=== PATIENT | female | born 1980 | race African-American/Black ===

== ENCOUNTER 2023-04-18 08:29 | Emergency (ER) | payer OTHER, SELFPAY ==
[2023-04-18 08:58] VITALS: BP 111/82; PULSE 67; RESP 18; TEMP 36.4; O2SAT 100; BMI 25.7
--- NOTE | 2023-04-18 09:38 | ED_ITS ---
HPI - Female Genitourinary General Chief complaint: Urogenital-Female Stated complaint: uti and blood in urine Time Seen by Provider: 04/18/23 09:14 History of Present Illness HPI Narrative: Patient complains of 2 days of dysuria, she complains of frequency burning and today there was some blood in the urine, she denies fever vomiting abdominal pain or back pain, denies any discharge no pelvic pain Related Data Previous Rx's Medication Instructions Recorded nitrofurantoin 100 mg PO Q12H 5 days #10 caps 04/18/23 monohydrate/macrocrystals 100 mg capsule (Macrobid) Allergies Allergy/AdvReac Type Severity Reaction Status Date / Time No Known Allergies Allergy Verified 04/18/23 08:58 COUNT INCLUDES THE [facility] Past Medical History Source: nursing notes reviewed Social History Social History Advance Directives: No Advance Directives Information Provided: Yes Physical Exam Vital Signs: Vital Signs: Last Vital Signs Temp 97.6 F 04/18/23 08:58 Pulse 67 04/18/23 08:58 Resp 18 04/18/23 08:58 BP 111/82 04/18/23 08:58 Pulse Ox 100 04/18/23 08:58 O2 Del Method Room Air 04/18/23 08:58 BMI result Body Mass Index 25.7 General appearance comfortable no distress The eyes anicteric no pallor Pharynx mucous membranes moist Neck is supple Abdomen soft nontender The back no CVA tenderness no pelvic tenderness Extremities range of motion x4 Course Course Course Narrative: Patient with thigh typical UTI symptoms similar to prior infections with no fever no vomiting Urinalysis confirmed UTI, was negative and patient is started on Macrobid Medications Administered Discontinued Medications Generic Name Dose Route Start Last Admin Trade Name Freq PRN Reason Stop Dose Admin Nitrofurantoin Macrocrystals 100 mg 04/18/23 10:19 04/18/23 10:28 Nitrofurantoin Monohyd/M-Cryst 100 Mg Capsule PO 04/18/23 10:20 100 mg ONCE ONE Administration Medical Decision Making Lab Data Labs: Lab Results 04/18/23 Range/Units 09:34 Urine Color Dark Yellow Urine Appearance Clear Urine pH 5.5 (5.0-9.0) Ur Specific [place] 1.010 (1.005-1.025) Urine Protein Negative (Neg-Trace) mg/dL Urine Glucose (UA) Negative (Negative) mg/dL Urine Ketones Negative (Negative) mg/dL Urine Blood Moderate (2+) H (Negative) Urine Nitrite Positive H (Negative) Ur Leukocyte Esterase Moderate (2+) H (Negative) Urine RBC 0-2 (0-2) /HPF Urine WBC 21-50 (0-5) /HPF Ur Squamous Epith Cells 3-5 (0-2) /HPF Urine Bacteria 4+ (None Seen) Hyaline Casts 0-2 (0-2) /LPF Urine Test NEGATIVE (NEGATIVE) Discharge Plan Discharge Clinical Impression: Urinary tract infection Patient Disposition: Home, Self-Care Additional Instructions: Urine test showed you have a urinary tract infection which is consistent with the symptoms you are having We are prescribing Macrobid antibiotic Drink plenty of water Return any time for fever vomiting increased pain any worse condition or any concerns Prescriptions: New nitrofurantoin monohyd/m-cryst [Macrobid] 100 mg capsule 100 mg PO Q12H 5 Days Qty: 10 0RF Rx Instructions: must administer with a meal/food Stand Alone Forms: Work/School Release Interventions: ED Discharge Assessment Last Done: 04/18/23 10:32 Discharge Date/Time: 04/18/23 10:33
[2023-04-18 09:41] LABS: Appearance Urine Clear; Color Urine Dark Yellow; Glucose Urine UA Negative (Negative); Leukocyte Esterase Urine Moderate (2+) (Negative); Nitrite Urine Positive (Negative); PH 5.5 (5.0-9.0); UMIC TRIGGER UACC YES; Urine Blood Moderate (2+) (Negative); Urine Ketones Negative (Negative); Urine Protein Negative (Neg-Trace)
[2023-04-18 09:44] LABS: UPreg QC Valid YES; Urine Pregnancy NEGATIVE (NEGATIVE)
[2023-04-18 09:53] LABS: Bacteria Urine 4+ (None Seen); Hyaline Casts Urine 0-2 /LPF (0-2); RBC Urine 0-2 /HPF (0-2); UACC Culture Trigger YES; WBC Urine 21-50 /HPF (0-5)
[2023-04-18] MEDS: Nitrofurantoin Monohyd/M-Cryst 100 MG CAPSULE PO (10:28)
== END 2023-04-18 10:33 | disposition home or self-care (01) ==
PROVIDERS: Emergency Provider Emergency Medicine Emergency Medical Services
DX: N39.0 Urinary tract infection, site not specified (principal)
CPT/HCPCS: 81001; 81025; 87086; 87088; 87186; 99282; 99283

== ENCOUNTER 2023-10-23 09:50 | Outpatient (AMB) | payer OTHER, SELFPAY ==
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
[2023-10-23 10:04] VITALS: BP 118/64; PULSE 61; O2SAT 99; BMI 27.1
== END 2023-10-23 11:05 | disposition home or self-care (01) ==
PROVIDERS: PCP Family Medicine; Visit Provider Family Medicine
DX: N60.02 Solitary cyst of left breast (principal); F41.8 Other specified anxiety disorders; Z87.898 Personal history of other specified conditions; Z12.31 Encounter for screening mammogram for malignant neoplasm of breast
CPT/HCPCS: 99203

== ENCOUNTER 2023-10-27 08:23 | Outpatient (REF) | payer OTHER, SELFPAY ==
[2023-10-27 10:21] LABS: Appearance Urine Clear; Color Urine Yellow; Glucose Urine UA Negative (Negative); Leukocyte Esterase Urine Negative (Negative); Nitrite Urine Negative (Negative); PH 6.5 (5.0-9.0); Urine Blood Negative (Negative); Urine Ketones Negative (Negative); Urine Protein Negative (Neg-Trace)
[2023-10-27 10:33] LABS: MANUAL DIFF FLAG NO
[2023-10-27 10:45] LABS: Basophils Percent Auto 0.5 % (0-2); Eosinophils Absolute Auto 0.1 X10*3/uL (0.0-0.4); Eosinophils Percent Auto 1.8 % (0-4); Hematocrit 41.8 % (37.0-47.0); Hemoglobin 13.2 g/dl (12.0-16.0); Imm Gran Abs Auto 0.05 X10*3/uL (0.00-0.03); Imm Gran Pct Auto 0.8 % (0.0-0.4); Lymphocytes Absolute Auto 2.3 X10*3/uL (1.2-4.9); Lymphocytes Percent Auto 37.8 % (20-40); Mean Corpuscular HGB Conc 31.6 g/dl (31.0-35.0); Mean Corpuscular Hemoglobin 27.1 pg (27.0-33.0); Mean Corpuscular Volume 85.8 fL (80.0-98.0); Mean Platelet Volume 10.5 fL (9.4-12.3); Monocytes Absolute Auto 0.6 X10*3/uL (0.1-1.2); Monocytes Percent Auto 9.1 % (2-11); Neutrophils Absolute Auto 3.1 x10*3/uL (2.0-8.3); Platelet Count 308 X10*3/uL (160-400); Red Blood Count 4.87 X10*6/uL (4.20-5.50); White Blood Count 6.2 X10*3/uL (4.8-10.8)
[2023-10-27 10:50] LABS: Creatinine Urine 162.55 mg/dL; Microalbumin Urine < 5.0 mg/L
[2023-10-27 11:04] LABS: Alanine Aminotransferase 11 U/L (0-31); Alkaline Phosphatase 73 U/L (39-117); Anion Gap 10 (12-20); Aspartate Amino Transferase 23 U/L (5-31); Bilirubin Total 0.4 mg/dL (0.0-1.0); Blood Urea Nitrogen 8 mg/dL (9-16); Calcium 9.4 mg/dL (8.4-10.2); Carbon Dioxide 27 mmol/L (22-29); Chloride 107 mmol/L (96-108); Cholesterol 187 mg/dL (<200); Estimated Glomerular Filt Rate > 60; Glucose Fasting 92 mg/dL (60-99); HDL Cholesterol 44 mg/dL (>40); LDL Cholesterol Calculated 118 mg/dL (<100); Sodium 140 mmol/L (135-145); Total Protein 7.1 g/dL (6.5-8.0); Triglycerides 128 mg/dL (<150)
[2023-10-27 11:11] LABS: TSH reflex Free T4 4.79 uIU/mL (0.32-4.0)
[2023-10-27 12:13] LABS: Free T4 (Free Thyroxine) 0.83 ng/dL (0.71-1.85)
[2023-10-28 20:58] LABS: Follicle Stimulating Hormone 3.7 mIU/mL; Lutenizing Hormone 3.5 mIU/mL
[2023-11-01 18:18] LABS: Estrogen 328 pg/mL
[2023-11-03 20:04] LABS: Progesterone 11.3 ng/mL
== END 2023-10-27 08:24 | disposition home or self-care (01) ==
LOC: HO.WFDLDS 08:23
PROVIDERS: Visit Provider Family Medicine
DX: Z00.00 Encounter for general adult medical examination without abnormal findings (principal); I10 Essential (primary) hypertension; Z90.711 Acquired absence of uterus with remaining cervical stump
CPT/HCPCS: 36415; 80053; 80061; 81003; 82570; 82672; 83001; 83002; 84144; 84439; 84443; 85025

== ENCOUNTER 2024-01-30 08:36 | Outpatient (AMB) | payer OTHER, SELFPAY ==
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
[2024-01-30 08:54] VITALS: BP 90/50; PULSE 75; RESP 16; TEMP 36.8; O2SAT 95; BMI 26.6
[2024-01-30 09:01] VITALS: BP 96/57
== END 2024-01-30 09:20 | disposition home or self-care (01) ==
PROVIDERS: PCP Family Medicine; Visit Provider Family Medicine
DX: F41.8 Other specified anxiety disorders (principal); R51.9 Headache, unspecified; R79.89 Other specified abnormal findings of blood chemistry; E78.00 Pure hypercholesterolemia, unspecified

== ENCOUNTER 2024-03-09 11:46 | Outpatient (AMB) | payer OTHER, SELFPAY ==
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
[2024-03-09 12:12] VITALS: BP 110/64; PULSE 76; RESP 14; O2SAT 95; BMI 26.5
== END 2024-03-09 12:40 | disposition home or self-care (01) ==
PROVIDERS: PCP Family Medicine; Visit Provider Family Medicine
DX: F41.8 Other specified anxiety disorders (principal); E78.00 Pure hypercholesterolemia, unspecified; R79.89 Other specified abnormal findings of blood chemistry; L65.9 Nonscarring hair loss, unspecified

== ENCOUNTER → 2024-03-09 11:46 | Outpatient (BNVA) | payer OTHER, SELFPAY | PROVIDERS: PCP Family Medicine; Visit Provider Family Medicine | DX: F41.8 Other specified anxiety disorders (principal); E78.00 Pure hypercholesterolemia, unspecified; R79.89 Other specified abnormal findings of blood chemistry; L65.9 Nonscarring hair loss, unspecified | CPT/HCPCS: 96127; 99212 ==

== ENCOUNTER 2024-03-12 08:17 | Outpatient (REF) | payer OTHER, SELFPAY ==
[2024-03-12 11:50] LABS: Alanine Aminotransferase 13 U/L (0-31); Albumin Level 3.9 g/dL (3.5-5.0); Alkaline Phosphatase 71 U/L (39-117); Anion Gap 10 (12-20); Aspartate Amino Transferase 24 U/L (5-31); Bilirubin Total 0.5 mg/dL (0.0-1.0); Blood Urea Nitrogen 9 mg/dL (9-16); Calcium 9.5 mg/dL (8.4-10.2); Carbon Dioxide 28 mmol/L (22-29); Chloride 103 mmol/L (96-108); Cholesterol 174 mg/dL (<200); Estimated Glomerular Filt Rate > 60; Free T4 (Free Thyroxine) 0.87 ng/dL (0.71-1.85); Glucose Fasting 91 mg/dL (60-99); HDL Cholesterol 54 mg/dL (>40); LDL Cholesterol Calculated 106 mg/dL (<100); Potassium 4.3 mmol/L (3.3-5.1); Sodium 137 mmol/L (135-145); Thyroid Stimulating Hormone 2.65 uIU/mL (0.32-4.0); Total Protein 6.9 g/dL (6.5-8.0); Triglycerides 73 mg/dL (<150)
[2024-03-13 17:23] LABS: Triiodothyronine T3 Total 104 ng/dL (76-181)
== END 2024-03-12 08:18 | disposition home or self-care (01) ==
LOC: HO.WFDLDS 08:17
PROVIDERS: Visit Provider Family Medicine
DX: Z00.00 Encounter for general adult medical examination without abnormal findings (principal); E78.00 Pure hypercholesterolemia, unspecified; R51.9 Headache, unspecified; M54.2 Cervicalgia; E03.9 Hypothyroidism, unspecified; R79.89 Other specified abnormal findings of blood chemistry
CPT/HCPCS: 36415; 80053; 80061; 84439; 84443; 84480

== ENCOUNTER 2024-03-24 09:45 | Outpatient (AMB) | payer OTHER, SELFPAY ==
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
[2024-03-24 10:00] VITALS: BP 100/60; PULSE 72; RESP 16; O2SAT 98; BMI 26.5
== END 2024-03-24 10:40 | disposition home or self-care (01) ==
PROVIDERS: PCP Family Medicine; Visit Provider Family Medicine
DX: F41.8 Other specified anxiety disorders (principal); L65.9 Nonscarring hair loss, unspecified; R41.840 Attention and concentration deficit

== ENCOUNTER → 2024-03-24 09:45 | Outpatient (BNVA) | payer OTHER, SELFPAY | PROVIDERS: PCP Family Medicine; Visit Provider Family Medicine | DX: F41.8 Other specified anxiety disorders (principal); L65.9 Nonscarring hair loss, unspecified; R41.840 Attention and concentration deficit | CPT/HCPCS: 96127; 99212 ==

== ENCOUNTER 2024-06-25 09:29 | Outpatient (AMB) | payer OTHER, SELFPAY ==
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
[2024-06-25 09:42] VITALS: BP 110/58; PULSE 65; RESP 14; TEMP 36.8; O2SAT 97; BMI 26.9
--- OUTSIDE RECORDS SUMMARY | 2024-06-25 10:12 | XMS_ITS | Encounter Summary ---
Author Organization [facility] Address [address] [place] [address] Care Team Providers Care Geothermal Field Technician Name Role Phone Pcp, No Primary Care Provider Unavailabl e Reason for Visit * Reason Comments Referral Encounter Details Date Type Department Care Team (Late st Contact Info) Description 11/21/2021 Telephone [facility] [place] [address] [place] [address] Blanca Kahn APRN [address] [place] [address] Referral Social History Tobacco Use Types Packs/Day Years Used Date Smoking Tobacco: Never Assessed Sex and Gender Information Value Date Recorded Sex Assigned at Not on file Gender Identity Not on file Sexual Orientation Not on file documented as of this encounter Miscellaneous Notes * Telephone Encounter - Kym Francois - 11/21/2021 10:27 AM EDT Spoke with patient regarding referral received from [facility] APRN and patient states is moving out of state and will schedule appointment then. Referring physician office notified; Spoke with Zaria in [facility] office to notify patient declined an appointment documented in this encounter Plan of Treatment Not on file documented as of this encounter Visit Diagnoses Not on filedocumented in this encounter Care Teams Geothermal Field Technician Relationship Specialty Start Date End Date Pcp, No [address] [place] [address] PCP - General 11/21/21 documented as of this encounter
--- OUTSIDE RECORDS SUMMARY | 2024-06-25 10:12 | XMS_ITS | Clinical Summary ---
Author Organization [facility] Address [address] [place] [address] Care Team Providers Care Event Decorator Name Role Phone Unavailable Primary Care Provider Unavailabl e Family History Medical History Relation Name Comments Breast cancer Neg Hx Social History Tobacco Use Types Packs/Day Years Used Date Smoking Tobacco: Never Assessed Sex and Gender Information Value Date Recorded Sex Assigned at Not on file Gender Identity Not on file Sexual Orientation Not on file Job Start Date Occupation Industry Not on file Not on file Not on file Plan of Treatment Health Maintenance Due Date Last Done Comments Hepatitis B Vaccines (1 of 3 - 3-dose series) 1980 Hepatitis C Screening 1980 COVID-19 Vaccine (#1) 03/13/1981 Depression Screening 1992 Preventative Health Evaluation 1998 DTap / Tdap / Td (1 - Tdap) 09/11/1999 Cervical Cancer Screening (P ap Smear) 2001 Influenza Vaccine (#1) 2023 Pneumococcal Vaccine Aged Out No long er eligible based on patient's age to complete this topic RSV Ped < 20 months Aged Out No longe r eligible based on patient's age to complete this topic
--- OUTSIDE RECORDS SUMMARY | 2024-06-25 10:12 | XMS_ITS | Clinical Summary ---
Author Organization [facility] Address [address] [place] [address] Care Team Providers Care Deboning Team Leader Name Role Phone Pcp, No Primary Care Provider Unavailabl e Social History Tobacco Use Types Packs/Day Years Used Date Smoking Tobacco: Never Assessed Sex and Gender Information Value Date Recorded Sex Assigned at Not on file Gender Identity Not on file Sexual Orientation Not on file Plan of Treatment Health Maintenance Due Date Last Done Comments Hepatitis C Virus Screening 1980 HIV Screening 1993 DTaP/Tdap/Td Vaccines (1 - Tdap) 09/11/1999 Hepatitis B Vaccines (1 of 3 - 19+ 3-dose series) 09/11/1999 Pap Smear (Ages 21-65) 2001 Mammogram 2020 Influenza Vaccine 11/27/2023 COVID-19 Vaccine ( - 2023-2 5 season) 2023 HPV Vaccines Aged Out No longer eligi ble based on patient's age to complete this topic Pneumococcal Vaccine: Pediat thaddeus (0-5 Years) and At-Risk Patients (6 to 49 Years) Aged Out No longer eligible b ased on patient's age to complete this topic Care Teams Deboning Team Leader Relationship Specialty Start Date End Date Pcp, No [address] [place] [address] PCP - General 11/21/21
== END 2024-06-25 10:21 | disposition home or self-care (01) ==
PROVIDERS: PCP Family Medicine; Visit Provider Family Medicine
DX: F41.8 Other specified anxiety disorders (principal); R41.840 Attention and concentration deficit; R68.82 Decreased libido

== ENCOUNTER → 2024-06-25 09:29 | Outpatient (BNVA) | payer OTHER, SELFPAY | PROVIDERS: PCP Family Medicine; Visit Provider Family Medicine | DX: F41.8 Other specified anxiety disorders (principal); R41.840 Attention and concentration deficit; R68.82 Decreased libido | CPT/HCPCS: 99212 ==

== ENCOUNTER 2024-10-26 11:20 | Outpatient (AMB) | payer OTHER, SELFPAY ==
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
[2024-10-26 12:06] VITALS: BP 94/66; PULSE 56; RESP 14; TEMP 36.7; O2SAT 99; BMI 26.9
--- OUTSIDE RECORDS SUMMARY | 2024-10-26 12:36 | XMS_ITS | Clinical Summary ---
Author Organization [facility] Address [address] [place] [address] Care Team Providers Care Recreational Therapist Name Role Phone Pcp, No Primary Care Provider Unavailabl e Social History Tobacco Use Types Packs/Day Years Used Date Smoking Tobacco: Never Assessed Comments Unknown Sex and Gender Information Value Date Recorded Sex Assigned at Not on file Legal Sex Female 11:42 AM EDT Gender Identity Not on file Sexual Orientation Not on file Plan of Treatment Health Maintenance Due Date Last Done Comments Hepatitis C Virus Screening 1980 HIV Screening 1993 DTaP/Tdap/Td Vaccines (1 - Tdap) 09/11/1999 Hepatitis B Vaccines (1 of 3 - 19+ 3-dose series) 09/11/1999 Pap Smear (Ages 21-65) 2001 Mammogram 2020 COVID-19 Vaccine ( - 2023-2 5 season) 2023 Influenza Vaccine 11/26/2024 HPV Vaccines Aged Out No longer eligi ble based on patient's age to complete this topic Pneumococcal Vaccine: Pediat thaddeus (0-5 Years) and At-Risk Patients (6 to 49 Years) Aged Out No longer eligible b ased on patient's age to complete this topic [place] [address] [place] [address] COMPREHENSIVE Care Teams Recreational Therapist Relationship Specialty Start Date End Date Pcp, No [address] [place] [address] PCP - General 11/21/21
--- OUTSIDE RECORDS SUMMARY | 2024-10-26 12:36 | XMS_ITS | Clinical Summary ---
Author Organization [facility] Address [address] [place] [address] Care Team Providers Care Baker Paint Name Role Phone Unavailable Primary Care Provider [...] Screening (P ap Smear) 2001 Influenza Vaccine (Season Ended) 2024 Pneumococcal Vaccine Aged Out No long er eligible based on patient's age to complete this topic RSV Ped < 20 months Aged Out No longe r eligible based on patient's age to complete this topic
== END 2024-10-26 15:19 | disposition home or self-care (01) ==
LOC: HO.HMCFM 11:21
PROVIDERS: PCP Family Medicine; Visit Provider Family Medicine
DX: R41.840 Attention and concentration deficit (principal); F41.8 Other specified anxiety disorders; R61 Generalized hyperhidrosis

== ENCOUNTER → 2024-10-26 11:20 | Outpatient (BNVA) | payer OTHER, SELFPAY | PROVIDERS: PCP Family Medicine; Visit Provider Family Medicine | DX: R41.840 Attention and concentration deficit (principal); F41.8 Other specified anxiety disorders; R61 Generalized hyperhidrosis | CPT/HCPCS: 96127; 99212 ==

== ENCOUNTER 2025-01-28 10:30 | Outpatient (AMB) | payer OTHER, SELFPAY ==
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
[2025-01-28 10:46] VITALS: BP 110/64; PULSE 64; RESP 15; TEMP 36.9; O2SAT 100; BMI 26.1
--- OUTSIDE RECORDS SUMMARY | 2025-01-28 11:25 | XMS_ITS | Clinical Summary ---
Author Organization [facility] Address [address] [place] [address] Care Team Providers Care Advertising Dispatch Clerk Name Role Phone Pcp, No Primary Care [...] (Ages 21-65) 2001 Mammogram 2020 Influenza Vaccine 11/26/2024 COVID-19 Vaccine ( - 2023-2 5 season) 2024 HPV Vaccines (No Doses Required) Completed Pneumococcal Vaccine: Pediat thaddeus (0-5 Years) and At-Risk Patients (6 to 49 Years) Aged Out No longer eligible b ased on patient's age to complete this topic Insurance [facility] Care Teams Advertising Dispatch Clerk Relationship Specialty Start Date End Date Pcp, No [address] [place] [address] PCP - General 11/21/21
--- OUTSIDE RECORDS SUMMARY | 2025-01-28 11:25 | XMS_ITS | Clinical Summary ---
Author Organization [facility] Address [address] [place] [address] Care Team Providers Care Ribbon Cleaner Name Role Phone Unavailable Primary Care Provider [...] (P ap Smear) 2001 Influenza Vaccine (#1) 2024 Pneumococcal Vaccine Aged Out No long er eligible based on patient's age to complete this topic RSV Ped < 20 months Aged Out No longe r eligible based on patient's age to complete this topic
--- OUTSIDE RECORDS SUMMARY | 2025-01-28 11:25 | XMS_ITS | Encounter Summary ---
Author Organization [facility] Address [address] [place] [address] Care Team Providers Care Regulatory Affairs Specialist Name Role Phone Pcp, No Primary Care Provider Unavailabl e Reason for Visit * Reason Comments Referral Encounter Details Date Type Department Care Team (Late st Contact Info) Description 11/21/2021 Telephone [facility] Medical [facility] [address] [place] [address] Blanca Kahn APRN [address] [place] [address] Referral Social History Tobacco Use Types Packs/Day [...] on filedocumented in this encounter Care Teams Regulatory Affairs Specialist Relationship Specialty Start Date End Date Pcp, No [address] [place] [address] PCP - General 11/21/21 documented as of this encounter
== END 2025-01-28 11:28 | disposition home or self-care (01) ==
LOC: HO.HMCFM 10:31
PROVIDERS: PCP Family Medicine; Visit Provider Family Medicine
DX: F41.8 Other specified anxiety disorders (principal); F98.8 Other specified behavioral and emotional disorders with onset usually occurring in childhood and adolescence

== ENCOUNTER → 2025-01-28 10:30 | Outpatient (BNVA) | payer OTHER, SELFPAY | PROVIDERS: PCP Family Medicine; Visit Provider Family Medicine | DX: F41.8 Other specified anxiety disorders (principal); F98.8 Other specified behavioral and emotional disorders with onset usually occurring in childhood and adolescence; Z79.899 Other long term (current) drug therapy | CPT/HCPCS: 96127; 99212 ==

== ENCOUNTER 2025-03-02 15:26 | Outpatient (AMB) | payer OTHER, SELFPAY ==
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
[2025-03-02 15:59] VITALS: BP 100/72; PULSE 94; RESP 15; TEMP 36.8; O2SAT 94; BMI 27.0
--- OUTSIDE RECORDS SUMMARY | 2025-03-02 18:20 | XMS_ITS | Clinical Summary ---
[facility] Organization [facility] Address [address] [place] [address] Care Team Providers Care Template Storage Clerk Name Role Phone Unavailable Primary Care Provider [...]
== END 2025-03-02 16:45 | disposition home or self-care (01) ==
LOC: HO.HMCFM 15:27
PROVIDERS: PCP Family Medicine; Visit Provider Family Medicine
DX: F98.8 Other specified behavioral and emotional disorders with onset usually occurring in childhood and adolescence (principal); F41.8 Other specified anxiety disorders

== ENCOUNTER → 2025-03-02 15:26 | Outpatient (BNVA) | payer OTHER, SELFPAY | PROVIDERS: PCP Family Medicine; Visit Provider Family Medicine | DX: F98.8 Other specified behavioral and emotional disorders with onset usually occurring in childhood and adolescence (principal); F41.8 Other specified anxiety disorders; Z79.899 Other long term (current) drug therapy | CPT/HCPCS: 99212 ==